=== PATIENT | female | born 1985 | race Caucasian/White ===

== ENCOUNTER 2017-03-08 12:04 | Inpatient (IN) | payer BC, OTHER ==
[~2017-03-08] VITALS: Ht 175.3 cm; Wt 56.7 kg
--- NOTE | 2017-03-08 15:00 | NUR ---
Admission Note VS: BP: 95/56 HR:89, SpO2: 96% RA, RR: 16, Temp: 97.6 Pain: 5/10 Bilateral legs Height: 5'9" Weight: 124 LB Allergies: SEAN Pt is a 31 y/o female admitted to [facility] on 03/08/17 at 1430. Pt is under the care of Dr. Perales for Heroin and Xanax dependence. Pt denies suicidal and homicidal ideations at this time. Pt reports being hospitalized at [facility] from 03/02/17-03/08/17. MRSA has been ordered and nasal swab has been done per unit protocol. Pt denies Chest Pain and SOB. Pt brought ibuprofen 600mg and Cephalexin with her. Upon assessment pt's skin is intact with multiple bruises all over her body. COWS 8, CIWA 4 upon admission. NKA, A/Ox4 and able to answer questions necessary for the admission process. Pt is Full Code. VS WNL, Regular Diet. Pt reports Hx of anxiety, depression, HepC . Reports she is HepC+. Denies any Hx of a family substance abuse. Pt reports having multiple seizures in the past, last one in January of 2017 prior to her admission to [facility]. Pt denies having a PCP. Breathing is even and unlabored, SpO2 is 96% on RA. Pt ambulates with a steady gait, reports lower extremity weakness. Pt has been placed on a 1:1 for safety reasons until farther evaluation. Pt reports regular daily BM. LBM on 03/08/17. Pt reports smoking [address] Perales has been notified, pt has been placed under observation, her withdrawal symptoms will be treated by PRN medications until farther assessment by Dr. Perales. Urine has been collected for test and UDS. All needs have been met. Pt has been oriented to the room and the unit. All safety measures in place per hospital policy. Bed in lowest position, side rails up x2 and padded, call-light within reach. Will continue to monitor. Substance Abuse: Heroin: 4g IV daily for 1 year. Last Use: 4g IV on 03/02/17 at 1000 Xanax: "15-20" bar daily for 1 year. Last Use: 1mg at 0800 on 03/08/17 0700 Methadone: 30mg daily for 1 week at [facility]. Last Use: 10mg on 03/08/17 at 1000
[2017-03-08] MEDS ORDERED: HYDROXYZINE PAMOATE 25 MG CAPSULE PO PRN (15:15)
[2017-03-08] MEDS ORDERED: diphenhydrAMINE 50 MG CAPSULE PO PRN (15:15)
[2017-03-08] MEDS ORDERED: ONDANSETRON 4 MG/2 ML VIAL IM PRN (15:15)
[2017-03-08] MEDS ORDERED: LORAZEPAM 1 MG TABLET PO PRN (15:15)
[2017-03-08] MEDS ORDERED: LOPERAMIDE HCL 2 MG CAPSULE PO PRN ×2 (15:15)
[2017-03-08] MEDS ORDERED: MAGNESIUM HYDROXIDE 30 ML LIQUID UDC PO PRN (15:15)
[2017-03-08] MEDS ORDERED: DICYCLOMINE HCL 20 MG TABLET PO PRN (15:15)
[2017-03-08] MEDS ORDERED: MIRALAX 17 GM POWD.PACK PO PRN (15:15)
[2017-03-08] MEDS ORDERED: MAG HYDROX/AL HYDROX/SIMETH 30 ML LIQUID UDC PO PRN (15:15)
[2017-03-08] MEDS ORDERED: CLONIDINE HCL 0.1 MG TABLET PO PRN (15:15)
[2017-03-08] MEDS ORDERED: IBUPROFEN 600 MG TABLET PO PRN (15:15)
[2017-03-08] MEDS ORDERED: ACETAMINOPHEN 325 MG TABLET PO PRN (15:15)
[2017-03-08] MEDS ORDERED: LORAZEPAM 2 MG/1 ML VIAL IM PRN (15:15)
[2017-03-08 16:17] LABS: *URINE HCG, QUAL NEGATIVE (NEGATIVE)
[2017-03-08 16:23] LABS: *AMPHETAMINE, URINE NEGATIVE (NEGATIVE); *BARBITURATE, URINE NEGATIVE (NEGATIVE); *CANNABINOID, URINE NEGATIVE (NEGATIVE); *COCCAINE, URINE NEGATIVE (NEGATIVE); *OPIATE, URINE NEGATIVE (NEGATIVE); *PHENCYCLIDINE SCREEN,URINE NEGATIVE (NEGATIVE)
[2017-03-08] MEDS ORDERED: IBUP-1955 PO (16:58)
[2017-03-08] MEDS ORDERED: GLUC1CAP30 PO (17:05)
[2017-03-08] MEDS ORDERED: BIOT300T2 PO (17:05)
[2017-03-08] MEDS ORDERED: CEPH500C2 PO (17:08)
--- NOTE | 2017-03-08 19:19 | NUR ---
End of Shift Endorsed pt to nightshift nurse. Pt is a 31 y/o female admitted to [facility] on 03/08/17 at 1430. Pt is under the care of Dr. Perales for Heroin and Xanax dependence. Pt denies suicidal and homicidal ideations at this time. Pt reports being hospitalized at [facility] from 03/02/17-03/08/17. MRSA has been ordered and nasal swab has been done per unit protocol. Pt denies Chest Pain and SOB. Pt brought ibuprofen 600mg and Cephalexin with her. Upon assessment pt's skin is intact with multiple bruises all over her body. COWS 6, CIWA [address] Perales has ordered a midline to be started on the pt. NKA, A/Ox4 and able to answer questions necessary for the admission process. Pt is Full Code. VS WNL, Regular Diet. Pt reports Hx of anxiety, depression, HepC . Reports she is HepC+. Denies any Hx of a family substance abuse. Pt reports having multiple seizures in the past, last one in January of 2017 prior to her admission to [facility] [place]. Pt denies having a PCP. Breathing is even and unlabored, SpO2 is 96% on RA. Pt ambulates with a steady gait, reports lower extremity weakness. Pt has been placed on a 1:1 for safety reasons until farther evaluation. Pt reports regular daily BM. LBM on 03/08/17. Pt reports smoking [address] Perales has been notified, pt has been placed under observation, her withdrawal symptoms will be treated by PRN medications until farther assessment by Dr. Perales. Urine has been collected for test and UDS. All needs have been met. Pt has been oriented to the room and the unit. All safety measures in place per hospital policy. Bed in lowest position, side rails up x2 and padded, call-light within reach. Will continue to monitor. Substance Abuse: Heroin: 4g IV daily for 1 year. Last Use: 4g IV on 03/02/17 at 1000 Xanax: "15-20" bar daily for 1 year. Last Use: 1mg at 0800 on 03/08/17 0700 Methadone: 30mg daily for 1 week at [facility]. Last Use: 10mg on 03/08/17 at 1000
--- NOTE | 2017-03-08 19:50 | NUR ---
START OF SHIFT Received report from day shift nurse. Pt is lying in bed watching TV with a 1:[address] for safety due to unsteady gait. She is a 31 [facility] for BZD and Heroin dependence. She is A&O and ambulatory. NKA, full code status, and on a vegetarian diet. She has a PMH of Hepatitis C, anxiety, depression, and suicide attempt. On admission she reported using heroin IV 4 grams per day, Xanax "15-20 bars" per day, and methadone 30mg per day for 1 week while at [place]. She is ordered PRN [facility]. Per MD, no Subutex is to be administered until 03/10. Lab results have not been obtained. Attempts to draw blood for labs have been unsuccessful. Mid-line insertion ordered by . Pt reports chills, nausea, anxiety, and mild body aches. She denies SI/HI. Fall precautions in place. Bed is down with call light in reach.
[2017-03-08 20:00] VITALS: BP 111/66
[2017-03-08] MEDS: LORAZEPAM 1 MG TABLET PO PRN (20:08)
[2017-03-08] MEDS: GABAPENTIN 300 MG CAPSULE PO SCH (20:08)
[2017-03-08] MEDS: ONDANSETRON ODT 4 MG TAB.RAPDIS SL PRN (20:08)
--- NOTE | 2017-03-08 20:10 | NUR ---
PRN Zofran and Ativan Pt reports nausea and anxiety. She has mild hand tremors, restlessness, and dilated pupils. CIWA score 5. PRN Zofran and Ativan administered.
--- NOTE | 2017-03-08 21:10 | NUR ---
PRN Ativan and Zofran reassessment Pt reports relief of nausea and that she is feeling more relaxed. COWS 4 and CIWA 2. She is lying comfortably in bed watching TV.
--- NOTE | 2017-03-08 22:20 | NUR ---
Mid-line inserted Mid-line inserted to right upper arm by Mid-line RN per MD orders. Pt tolerated the procedure. Dressing is clean, dry, and intact.
[2017-03-09] VITALS: BP 100/62
--- NOTE | 2017-03-09 01:00 | NUR ---
Nursing Note Two attempts made to draw blood from pt's mid-line catheter for ordered labs. Samples were hemolyzed. Pt refused any further blood draws.
[2017-03-09 04:00] VITALS: BP 88/58
--- NOTE | 2017-03-09 07:25 | NUR ---
END OF SHIFT Report provided to day shift nurse. Pt is lying in bed resting with a 1:[address] CONSTRUCTION [address]OSSING GUARD in [address] for safety due to unsteady gait. She is a 31 yo female admitted to [facility] today from [facility] for BZD and Heroin dependence. She is A&O and ambulatory. NKA, full code status, and on a vegetarian diet. She has a PMH of Hepatitis C, anxiety, depression, and suicide attempt. On admission she reported using heroin IV 4 grams per day, Xanax 15-20 bars per day, and methadone 30mg per day for 1 week while at [place]. Per , Subutex is not to be administered until 03/10. PRN Ativan available. Mid-line inserted by mid-line nurse. Blood draws from mid-line were hemolyzed and could not be resulted. Pt refused any further blood draws from mid-line. made aware. PRN Ativan and Zofran administered. Last COWS 4 and CIWA 2. She drank 296mL and slept for 6 hours. Bed is down with call light in reach.
--- NOTE | 2017-03-09 07:54 | NUR ---
START OF SHIFT NOTE Received report from night nurse, 31 year old female admitted for Benzo/Heroin dependence. NKA, full code status, and on a vegetarian diet. Pt has a PMH of Hepatitis C, anxiety, depression, and suicide attempt. Pt reported using heroin IV 4 grams per day, Xanax 15-20 bars per day, and methadone 30mg per day for 1 week while at [place]. Per MD, Subutex is not to be administered until 03/10. PRN Ativan available for s/s of withdrawal. Pt has Mid-line R upper arm which was inserted by mid-line nurse. Per night nurse blood draws from mid-line were hemolyzed and could not be resulted. Pt received PRN Ativan/ Zofran during night, slept for 6 hours, Last COWS-4, CIWA-2. Received pt resting in her room in stable condition, responsive to verbal and tactile stimuli. Skin warm and dry to touch. Breathing normal no SOB noted. All safety measures in place, Call light within reach. Will cont to monitor.
[2017-03-09 08:00] VITALS: BP 104/62
[2017-03-09] MEDS: GABAPENTIN 300 MG CAPSULE PO SCH ×3 (08:39→20:11)
[2017-03-09] MEDS: MULTIVITAMINS,THERAPEUTIC TABLET PO SCH (08:39)
[2017-03-09] MEDS: METHOCARBAMOL 750 MG TABLET PO PRN ×2 (09:00→20:11)
[2017-03-09] MEDS: LORAZEPAM 1 MG TABLET PO PRN (09:00)
[2017-03-09] MEDS ORDERED: TUBERCULIN,PURIF.PROT.DERIV. 5 TU/0.1 ML TEST ID ONE (09:00)
[2017-03-09] MEDS: ONDANSETRON ODT 4 MG TAB.RAPDIS SL PRN (09:00)
--- NOTE | 2017-03-09 09:00 | NUR ---
PRN MEDS Pt c/o anxiety, restless, nausea no emesis, muscle aches, general body aches 02/09. CIWA noted 8. Non pharmacological interventions ineffective. Administered PRN Ativan 1mg Po, Zofran 4mg SL, Motrin 600mg Po, Robaxin 750 mg Po as ordered. Pt cont with 1:1 for unsteady gait. All safety measures in place, call light within reach. Will reassess the pt.
--- NOTE | 2017-03-09 09:15 | NUR ---
1:1 DISCONTINUED Pt's 1:1 supervision r/t safety precautions was discontinued after reassessing the pt. Pt stated" I am fine I do not need someone in here with me". Pt ambulates independently with steady gait. Pt denies any feeling of fear. Will cont to monitor.
--- NOTE | 2017-03-09 09:30 | NUR ---
ZOFRAN REASSESSMENT Pt reported medication effective nausea subside. Will cont to monitor.
--- NOTE | 2017-03-09 10:00 | NUR ---
ROBAXIN/MOTRIN REASSESSMENT Pt reported muscle aches and body pain decreased 2/10 medication effective. Will cont to monitor. Addendum: 03/09/17 at 1047 by BIRGIT PERSAUD LVN ATIVAN REASSESSMENT Pt reported feeling less anxious CIWA decreased to 4. Will cont to monitor.
[2017-03-09] MEDS: LORAZEPAM 1 MG TABLET PO SCH ×3 (11:30→20:11)
[2017-03-09 12:00] VITALS: BP 101/66
[2017-03-09 14:10] LABS: BASOPHILS % (AUTO) 0.2 % (0.0-2.0); EOSINOPHILS # (AUTO) 0.1 K/uL (0.0-0.7); HEMATOCRIT 35.1 % (37-47); LYMPHOCYTES # (AUTO) 2.4 K/UL (0.8-4.8); LYMPHOCYTES % (AUTO) 22.3 % (20.5-51.5); MEAN CORPUSCULAR HEMOGLOBIN 30.8 UUG (27.0-31.0); MEAN CORPUSCULAR HGB CONC 34 g/dL (32.0-37.0); MEAN CORPUSCULAR VOLUME 89.7 FL (81.0-99.0); MONOCYTES # (AUTO) 0.6 K/UL (0.1-1.30); MONOCYTES % (AUTO) 5.2 % (0.0-11.0); NEUTROPHILS # (AUTO) 7.5 K/UL (1.8-8.9); NEUTROPHILS % (AUTO) 71.3 % (38.5-71.5); PLATELET COUNT (AUTO) 316 K/UL (150-450); RED BLOOD CELL COUNT(AUTO) 3.91 MIL/UL (4.2-5.4); WHITE BLOOD COUNT (AUTO) 10.6 K/UL (4.0-11.2)
[2017-03-09 14:42] LABS: ETHANOL < 3 MG/DL (0-0)
--- NOTE | 2017-03-09 14:48 | NUR ---
Client was encouraged to attend group at 3:30pm. Client related that she would attend.
[2017-03-09 15:00] LABS: ALANINE AMINOTRANSFERASE 59 U/L (14-59); ALKALINE PHOSPHATASE 61 U/L (50-136); ASPARTATE AMINOTRANSFERASE 45 U/L (15-37); BILIRUBIN,TOTAL 0.3 mg/dL (0.2-1.0); CARBON DIOXIDE 31 mmol/L (21-32); CHLORIDE 107 mmol/L (98-107); CREATININE 0.8 mg/dL (0.6-1.3); GLUCOSE 89 mg/dL (74-106); MAGNESIUM 2.2 mg/dL (1.8-2.4); POTASSIUM 3.2 mmol/L (3.5-5.1); TOTAL PROTEIN, SERUM 6.6 g/dL (6.4-8.2); UREA NITROGEN, BLOOD 5 mg/dL (7-18)
[2017-03-09 15:54] LABS: THYROID STIMULATING HORMONE 0.878 mIU/mL (0.358-3.740)
[2017-03-09 16:00] VITALS: BP 96/57
[2017-03-09] MEDS ORDERED: POTASSIUM CHLORIDE 20 MEQ TAB.PRT.SR PO ONE ×2 (16:00→17:00)
--- NOTE | 2017-03-09 16:12 | NUR ---
LOW POTASSIUM LEVEL Pt noted with low potassium level 3.2L notified new order to administered K-DUR [id number]. Medication administered as ordered. Will cont to monitor.
--- NOTE | 2017-03-09 19:14 | NUR ---
END OF SHIFT NOTE Gave report to night nurse, 31 year old female admitted for Benzo/Heroin dependence. NKA, full code status, and on a vegetarian diet. Pt has a PMH of Hepatitis C, anxiety, depression, and suicide attempt. Pt reported using heroin IV 4 grams per day, Xanax 15-20 bars per day, and methadone 30mg per day for 1 week while at [place]. Per MD, Subutex is not to be administered until 03/10. Pt started on Ativan taper tolerated well. Pt has Mid-line R upper arm which was inserted by mid-line nurse. Pt received PRN medications during shift noted to be effective. Pt attended some groups and activities. Pt remained in stable condition. Breathing normal no SOB noted. Skin warm and dry to touch. Last CIWA-4, COWS-4. Encouraged Po fluids as tolerated. All safety measures in place, Call light within reach. Pt endorsed to night nurse in stable condition.
[2017-03-09 20:00] VITALS: BP 97/67
--- NOTE | 2017-03-09 20:00 | NUR ---
START OF SHIFT Received report from day shift nurse. Pt attended a group meeting and returned to her room after. She is a 31 yo female admitted to [facility] on 03/08 for BZD and Heroin dependence. She is A&O and ambulatory. NKA, full code status, and on a vegetarian diet. She has a PMH of Hepatitis C, anxiety, depression, and suicide attempt. Pt denies SI/HI. Upon admission she reported using heroin IV 4 grams per day, Xanax "15-20 bars" per day, and methadone 30mg per day for 1 week while at [place] prior to admission. Ativan taper started today. Continues to monitor COWS score. Pt has a mid-line to the right upper arm. Dressing is clean, dry, and intact. Fall precautions in place. Bed is down with call light in reach.
--- NOTE | 2017-03-09 20:12 | NUR ---
PRN Robaxin Pt reports generalized body aches 01/10. PRN Robaxin administered.
--- NOTE | 2017-03-09 21:12 | NUR ---
PRN robaxin reassessment PRN Robaxin effective. Pt reports relief of generalized body aches.
--- NOTE | 2017-03-09 22:30 | NUR ---
Mid-line dressing changed performed No redness, drainage, or swelling noted. Pt tolerated the dressing change.
[2017-03-10] VITALS: BP 109/77
[2017-03-10 04:00] VITALS: BP 107/67
--- NOTE | 2017-03-10 07:20 | NUR ---
END OF SHIFT Report provided to day shift nurse. Pt is lying in bed watching TV. She is a 31 yo female [facility] for BZD and Heroin dependence. She is A&O and ambulatory. NKA, full code status, and on a vegetarian diet. She has a PMH of Hepatitis C, anxiety, depression, and suicide attempt. Pt denies SI/HI. Upon admission she reported using heroin IV 4 grams per day, Xanax "15-20 bars" per day, and methadone 30mg per day for 1 week while at [place] prior to admission. Ativan taper started 03/09. Continue to monitor COWS score. Pt has a mid-line to the right upper arm that is patent and intact. 24 hours dressing changed performed. PRN Robaxin administered. Last COWS 2 and CIWA 2. She drank 591mL and slept for 6 hours. Fall precautions in place. Bed is down with call light in reach.
--- NOTE | 2017-03-10 07:30 | NUR ---
Start of Shift Report from night nurse: Pt is a 31 y/o female here for Opiates r/t Heroin 4g IV/d for 1 wk and Methadone 30mg PO/d 1 week, Benzo r/t Xanax 15-20 bars/d for 1 week; Modified Ativan taper ordered. Pt is a full code, vegetarian diet, NKA, fall and seizure precautions ordered. Hhx: Stay at [place] for 1 wk for possible OD with Seizures yet pt is unaware of dx there so will f/u re: MRSA swab, Hep C+, Anxiety, Depression and suicide attempt 1 yr ago. Endorsed to me to f/u re: Subutex taper if it is to be ordered and K-Dur supplemen given for low K+. V/S stable. Skin is intact. Pt has a Midline in [facility]Y for blood draw needed at admission and endorsed to me to label dressing change date. PRN Robaxin given last night. No new labs endorsed to me. Last COWS 2 CIWA 2. Pt is asleep in room. Will cont. to monitor the pt.
[2017-03-10 08:00] VITALS: BP 112/72
[2017-03-10 08:11] LABS: HEPATITIS B SURFACE AG Negative (Negative)
[2017-03-10] MEDS: MULTIVITAMINS,THERAPEUTIC TABLET PO SCH (08:46)
[2017-03-10] MEDS: LORAZEPAM 1 MG TABLET PO SCH ×4 (08:46→20:19)
[2017-03-10] MEDS: GABAPENTIN 300 MG CAPSULE PO SCH ×3 (08:47→20:18)
[2017-03-10] MEDS: ONDANSETRON ODT 4 MG TAB.RAPDIS SL PRN (08:47)
--- NOTE | 2017-03-10 08:50 | NUR ---
PRN Medication Administration Pt c/o SUAZO 4/10 pain and Nausea; PRN Tylenol 650mg and Zofran 4mg SL given as ordered. Will reassess in 1H.
--- NOTE | 2017-03-10 09:30 | NUR ---
Reassessment Pt denies Nausea and SUAZO; Zofran and Tylenol are effective. Will cont. to monitor the pt.
[2017-03-10 12:00] VITALS: BP 115/82
[2017-03-10] MEDS ORDERED: BUPRENORPHINE HCL 2 MG TAB.SUBL SL ONE (13:00)
--- NOTE | 2017-03-10 13:20 | NUR ---
Medication Administration ONCE-Subutex and New Orders Pt is in room anxious with sweating, diarrhea, generalized pain 8/10, flushed, nasal congestion, irritability, goose bumps present, reports chill and hot flashes, V/S stable, generalized tremors, COWS 11; Subutex 4mg ONCE given as ordered. Pt states that she has effectiveness with adsorption SL and states that the tremors are relieved and no feelings of having a "seizure" present. Notified Dr. Perales so new orders for modified Subutex taper ordered. Will cont. to monitor the pt.
--- NOTE | 2017-03-10 14:32 | NUR ---
Clinician encouraged to attend the afternoon group. Client said she felt a lot better and would attend.
--- NOTE | 2017-03-10 14:45 | NUR ---
Reassessment Pt states the she is anxious and with mild numbness, denies diarrhea, no nausea and no irritability; Subutex 4mg ONCE is effective. Will cont. to monitor the pt.
[2017-03-10 16:00] VITALS: BP 101/63
[2017-03-10] MEDS: BUPRENORPHINE HCL 2 MG TAB.SUBL SL SCH ×2 (16:47→20:18)
--- NOTE | 2017-03-10 19:36 | NUR ---
End of Shift Report to night nurse: Pt is a 31 y/o female here for Opiates r/t Heroin 4g IV/d for 1 wk and Methadone 30mg PO/d 1 week, Benzo r/t Xanax 15-20 bars/d for 1 week; Modified Ativan taper ordered with Subutex started today after ONCE Subutex given with COWS 13 at 1325p. Pt is a full code, vegetarian diet, NKA, fall and seizure precautions ordered. Hhx: Stay at [place] for 1 wk for possible OD with Seizures yet pt is unaware of dx there so will f/u re: MRSA swab, Hep C+, Anxiety, Depression and suicide attempt 1 yr ago. V/S stable. Skin is intact. Pt has a Midline in MINDY for blood draw needed at admission and I labeled the date of it during my shift. PRN Tylenol given for SUAZO and pt c/o diarrhea yet refused Imodium, PRN Zofran given. No new labs during my shift. Last COWS 3 CIWA 3.
[2017-03-10 20:00] VITALS: BP 109/76
--- NOTE | 2017-03-10 20:15 | NUR ---
START OF SHIFT NOTE Pt is a 31 y/o female admitted for Heroin, Methadone, and Xanax dependence and use. Pt has NKA but reported a PMH of anxiety, depression, suicide attempt (1 year ago ), Hep C (+) and recent hospitalization. Per day shift nurse pt was placed on a modified Subutex and Ativan taper and is tolerating medication well with no s/e or a/r reported. Pt received a x1 dose of Subutex 4 mg PO, Zofran 4 mg ODT PRN, and Tylenol 650 mg PO PRN during the day shift. Last COW: 3 and CIWA: 3 (1600). At this time pt is in her room watching television. Pt stated " I feel okay. I'm kind of achy, but it's not bad." Pt denies any other pain/discomfort. Pt was encouraged to notify staff of any changes in condition or of any concerns. Pt verbalized an understanding. All safety measures in place; side rails up x 2, bed locked and in low position, and call light within reach. Will continue to monitor.
[2017-03-11] VITALS: BP 93/60
[2017-03-11 04:00] VITALS: BP 93/65
--- NOTE | 2017-03-11 07:06 | NUR ---
END OF SHIFT NOTE Pt is a 31 y/o female admitted for Heroin, Methadone, and Xanax dependence and use. Pt has NKA but reported a PMH of anxiety, depression, suicide attempt (1 year ago ), Hep C (+) and recent hospitalization. Pt was placed on a modified Subutex and Ativan taper and is tolerating medication well with no s/e or a/r reported. Pt didn't receive any PRNS during the shift. Last COW: 0 and CIWA: 0 (0400). Pt slept for a total of 5 hours. All safety measures in place; side rails up x 2, bed locked and in low position, and call light within reach. Will endorse to the oncoming nurse.
--- NOTE | 2017-03-11 07:10 | NUR ---
Start Of Shift Report received. Pt is a 31 y/o female admitted for Heroin, Methadone, and Xanax dependence and use. Full code vegeterian diet on continues on fall and seizure precautions. PMH of anxiety, depression, suicide attempt (1 year ago ), Hep C (+) and recent hospitalization. Pt continues her modified Subutex and Ativan taper and is tolerating medication well. Pt has a midline on right arm, intact with no s/s of infection. Pt did not receive any PRN medications last night. Last COW: 0 and CIWA: 0 (0400). At this time pt is in her room watching television. Pt stated " I feel a bt anxious and fidgety." Pt denies any other pain/discomfort. Pt was encouraged to notify staff of any changes in condition or of any concerns. Pt verbalized an understanding. Pt slept a total of 7 hours last night. All safety measures in place; side rails up x 2, bed locked and in low position, and call light within reach. Will continue to monitor and provide care.
[2017-03-11 08:00] VITALS: BP 99/69
[2017-03-11] MEDS: MULTIVITAMINS,THERAPEUTIC TABLET PO SCH (08:52)
[2017-03-11] MEDS: LORAZEPAM 1 MG TABLET PO SCH ×3 (08:52→20:57)
[2017-03-11] MEDS: GABAPENTIN 300 MG CAPSULE PO SCH ×3 (08:52→20:58)
[2017-03-11] MEDS ORDERED: BUPRENORPHINE HCL 2 MG TAB.SUBL SL SCH (09:00)
[2017-03-11 12:00] VITALS: BP 99/63
[2017-03-11] MEDS: BUPRENORPHINE HCL 2 MG TAB.SUBL SL SCH ×2 (14:15→20:59)
[2017-03-11 17:08] VITALS: BP 90/62
--- NOTE | 2017-03-11 19:14 | NUR ---
End Of Shift Report given. Pt is a 31 y/o female admitted for Heroin, Methadone, and Xanax dependence and use. Full code vegetarian diet continues on fall and seizure precautions. Pt continues her modified Subutex and Ativan taper and is tolerating medication well. Pt has a midline on right arm, which is discontinued and will be endorsed to warehouse shift supervisor nurse to remove no s/s of infection. Pt did not receive any PRN medications during my shift. Last COW: 5 and CIWA: 5 (1600). Detox medication effective at reducing withdrawal symptoms. Patient encouraged to attend group therapies/sessions to learn new coping skills to recent relapse, noted attending and participating, patient denies SI/HI. Pt ate all meals total fluid intake was 1500ml with 3 void and 0 bowel movement. Safety measures in place. Call light kept within reach. Patient endorsed to warehouse shift supervisor nurse, all pertinent information discussed.
[2017-03-11 20:00] VITALS: BP 110/78
--- NOTE | 2017-03-11 20:00 | NUR ---
Midline removed per MD order.
--- NOTE | 2017-03-11 20:03 | NUR ---
START OF SHIFT NOTE Pt is a 31 y/o female admitted for Heroin, Methadone, and Xanax dependence and use. Pt has NKA but reported a PMH of anxiety, depression, suicide attempt (1 year ago ), Hep C (+) and recent hospitalization. Per day shift nurse pt continues on a modified Subutex and Ativan taper and is tolerating medication well with no s/e or a/r reported. Pt didn't receive any PRNS during the day shift. Last COW: 5 and CIWA: 5 (1600). At this time pt is in her room watching television. Pt stated " I'm okay. I need to make a phone call to my roommate." Pt denies any other pain/discomfort. Pt was encouraged to notify staff of any changes in condition or of any concerns. Pt verbalized an understanding. All safety measures in place; side rails up x 2, bed locked and in low position, and call light within reach. Will continue to monitor.
[2017-03-11] MEDS: BACLOFEN 10 MG TABLET PO SCH (20:58)
[2017-03-12] VITALS: BP 110/74
--- NOTE | 2017-03-12 04:00 | NUR ---
COW, CIWA, AND VITALS REFUSED Pt refused to be assessed and have vitals taken at this time. Pt was encouraged x 3 with risks and benefits explained, but the pt still refused. All safety measures in place. Will continue to monitor. Addendum: 03/12/17 at 0520 by KACI BLANCO LVN Amended: Links added.
--- NOTE | 2017-03-12 07:15 | NUR ---
END OF SHIFT NOTE Pt is a 31 y/o female admitted for Heroin, Methadone, and Xanax dependence and use. Pt has NKA but reported a PMH of anxiety, depression, suicide attempt (1 year ago ), Hep C (+) and recent hospitalization. Pt was placed on a modified Subutex and Ativan taper and is tolerating medication well with no s/e or a/r reported. Pt didn't receive any PRNS during the shift. Last COW: 2 and CIWA: 0 (0000). Pt slept for a total of 6 hours. All safety measures in place; side rails up x 2, bed locked and in low position, and call light within reach. Will endorse to the oncoming nurse.
--- NOTE | 2017-03-12 07:45 | NUR ---
START OF SHIFT Received report from taker down nurse. 31 year old female patient admitted on 03/08/17 for Heroin, Xanax and Methadone withdrawals. Pt has been placed on an Ativan and modified Subutex taper and is tolerating well. NKA reported, vegetarian diet and full code. Pt reports hx of Hep C, anxiety, depression and anxiety. Pt has hx of suicide attempt one year ago. Denies SI/HI or hallucinations at this time. Pt has right upper arm mid line due to being a hard stick, mid line was discontinued and successfully removed on 03/11/17. MRSA swab test done, results are negative. No PRN medications were needed or administered throughout night. COWS 2 and CIWA 0 at 0000. Pt remains safe throughout shift. All needs met at this time. Safety precautions remain in place, will continue to monitor.
[2017-03-12 08:10] VITALS: BP 110/74
[2017-03-12 08:14] VITALS: BP 99/62
[2017-03-12] MEDS: GABAPENTIN 300 MG CAPSULE PO SCH ×2 (09:30→14:38)
[2017-03-12] MEDS: MULTIVITAMINS,THERAPEUTIC TABLET PO SCH (09:30)
[2017-03-12] MEDS: BUPRENORPHINE HCL 2 MG TAB.SUBL SL SCH ×3 (09:30→21:31)
[2017-03-12] MEDS: BACLOFEN 10 MG TABLET PO SCH (09:30)
[2017-03-12] MEDS: LORAZEPAM 1 MG TABLET PO SCH ×2 (09:30→21:31)
[2017-03-12 13:23] VITALS: BP 96/69
[2017-03-12] MEDS: BACLOFEN 20 MG TABLET PO SCH ×2 (14:38→21:31)
[2017-03-12] MEDS ORDERED: BACLOFEN 10 MG TABLET PO SCH (15:00)
--- NOTE | 2017-03-12 15:52 | NUR ---
PRN BENTYL Pt c/o 04/11 abdominal cramping. PRN Bentyl administered as ordered. Will reassess.
--- NOTE | 2017-03-12 16:52 | NUR ---
REASSESSMENT Pt states cramps decreased to 2/10, medication was effective.
[2017-03-12 17:09] VITALS: BP 95/62
--- NOTE | 2017-03-12 18:59 | NUR ---
END OF SHIFT Endorsed to security shift manager nurse. 31 year old female patient admitted on 03/08/17 for Heroin, Xanax and Methadone withdrawals. Pt has been placed on an Ativan and modified Subutex taper and is tolerating well. NKA reported, vegetarian diet and full code. Pt reports hx of Hep C, anxiety, depression and anxiety. Pt has hx of suicide attempt one year ago. Denies SI/HI or hallucinations at this time. PRN Bentyl was administered for cramps. Most recent COWS 4 and CIWA 4 at 1700. Eats 100% of meals. V/S remain WNL /p runs low, does not present with s/s of discomfort. Encouraged to have adequate fluid intake. Pt remains compliant. Encouraged to attend groups, pt did not attend afternoon group because she reports having "bad cramps" and wanted to rest, bentyl administered and effective. Pt remains safe throughout shift. All needs met at this time. Safety precautions remain in place, security shift manager nurse will continue to monitor.
[2017-03-12 20:00] VITALS: BP 94/67
--- NOTE | 2017-03-12 20:00 | NUR ---
START OF SHIFT NOTE Pt is a 31 y/o female admitted for Heroin, Methadone, and Xanax dependence and use. Pt has NKA but reported a PMH of anxiety, depression, suicide attempt (1 year ago ), Hep C (+) and recent hospitalization. Per day shift nurse pt continues on a modified Subutex and Ativan taper and is tolerating medication well with no s/e or a/r reported. Pt received Bentyl 20 mg PO PRN during the day shift. Last COW: 4 and CIWA: 4 (1600). At this time pt is in her room watching television. Pt stated " I'm doing okay. I'm a little nauseous, but it's not bad. I'll let you know if it gets worse." Pt denies any other pain/discomfort. Pt was encouraged to notify staff of any changes in condition or of any concerns. Pt verbalized an understanding. All safety measures in place; side rails up x 2, bed locked and in low position, and call light within reach. Will continue to monitor.
[2017-03-12] MEDS ORDERED: GABAPENTIN 300 MG CAPSULE PO SCH (21:00)
[2017-03-13] VITALS: BP 119/71
--- NOTE | 2017-03-13 04:00 | NUR ---
COW, CIWA, AND VITALS REFUSED Pt refused to be assessed and have vitals taken at this time. Pt was encouraged x 3 with risks and benefits explained, but the pt still refused. All safety measures in place. Will continue to monitor. Addendum: 03/13/17 at 0622 by KACI BLANCO LVN Amended: Links added.
--- NOTE | 2017-03-13 06:59 | NUR ---
END OF SHIFT NOTE Pt is a 31 y/o female admitted for Heroin, Methadone, and Xanax dependence and use. Pt has NKA but reported a PMH of anxiety, depression, suicide attempt (1 year ago ), Hep C (+) and recent hospitalization. Pt continues on a modified Subutex and Ativan taper and is tolerating medication well with no s/e or a/r reported. Pt didn't receive any PRNS during the shift. Last COW: 1 and CIWA: 0 (0000). Pt slept for a total of 5 hours. All safety measures in place; side rails up x 2, bed locked and in low position, and call light within reach. Will endorse to the oncoming nurse.
--- NOTE | 2017-03-13 07:44 | NUR ---
START OF SHIFT Received report from shift production supervisor nurse. 31 year old female patient admitted on 03/08/17 for Heroin, Xanax and Methadone withdrawals. Pt has been placed on an Ativan and modified Subutex taper and is tolerating well. NKA reported, vegetarian diet and full code. Pt reports hx of Hep C, anxiety, depression and anxiety. Denies SI/HI or hallucinations at this time. No PRN medications were needed or administered throughout night. COWS 1 and CIWA 0 at 0000. Pt remains safe throughout shift. Pt slept for 5 hours. All needs met at this time. Safety precautions remain in place, will continue to monitor.
[2017-03-13 08:11] VITALS: BP 103/63
[2017-03-13] MEDS ORDERED: BUPRENORPHINE HCL 2 MG TAB.SUBL SL SCH (09:00)
[2017-03-13] MEDS: BACLOFEN 20 MG TABLET PO SCH (09:39)
[2017-03-13] MEDS: MULTIVITAMINS,THERAPEUTIC TABLET PO SCH (09:39)
[2017-03-13] MEDS: GABAPENTIN 300 MG CAPSULE PO SCH (09:39)
--- NOTE | 2017-03-13 11:33 | NUR ---
AMA NOTE Pt left AMA, Pt refused to comply with treatment. Pt educated about the risks and consequences of leaving AMA, pt verbalized understanding but was adamant about leaving. Multiple staff members including doctors, patient advocates and nurses attempted to reason with pt without any success. VS WNL, skin intact pt denied any suicidal or homicidal ideations. Dr. Perales is aware. Pt was given a list of community resources and all belongings, AMA forms explained and signed. all belongings returned to Pt. Pt left facility AMA on 03/13/17 at 1129.
== END 2017-03-13 11:29 | disposition left against medical advice (07) | DRG 894 ==
LOC: SRC 14:22
PROVIDERS: ADMIT Internal Medicine; ATTEND Internal Medicine
PROC: HZ2ZZZZ Detoxification Services for Substance Abuse Treatment (ICD-10-PCS; principal; 2017-03-08)
PROC: 05H533Z Insertion of Infusion Device into Right Subclavian Vein, Percutaneous Approach (ICD-10-PCS; principal; 2017-03-08)
PROC: HZ41ZZZ Group Counseling for Substance Abuse Treatment, Behavioral (ICD-10-PCS; 2017-03-09)
PROC: HZ31ZZZ Individual Counseling for Substance Abuse Treatment, Behavioral (ICD-10-PCS; 2017-03-10)
DX: F11.23 Opioid dependence with withdrawal (principal); F13.230 Sedative, hypnotic or anxiolytic dependence with withdrawal, uncomplicated; F17.210 Nicotine dependence, cigarettes, uncomplicated; F16.10 Hallucinogen abuse, uncomplicated; F14.10 Cocaine abuse, uncomplicated; E87.6 Hypokalemia; B19.20 Unspecified viral hepatitis C without hepatic coma; F32.9 Major depressive disorder, single episode, unspecified; Z81.8 Family history of other mental and behavioral disorders; Z81.3 Family history of other psychoactive substance abuse and dependence
CPT/HCPCS: 36415; 70030-TC; 80307; 80346; 83735; 84443; 84703; 85025; 86580; 86592; 86705; 86803; 87340; 87806; A4663; G0480; Q0162